=== PATIENT | female | born 1940 | race Caucasian/White ===

== ENCOUNTER 2016-09-18 08:24 | Emergency (ER) | payer MEDICARE ==
[~2016-09-18] VITALS: Ht 161.3 cm; Wt 81.8 kg
[~2016-09-18 08:24] MED LIST: ACYC400T2 PO; ALBU8.5H2 IH; ASPI-973 PO; CHOL100045 PO; CYAN500 PO; DILT120C86 PO; FLUC150T48 PO; FLUT1DIS5 IH; FLUT9.9S NS; GUAI600T86 PO; HYDR25TA4 PO; IPRA3AMP IH; MULT-1018 PO; PRAM0.252 PO; PRE20 PO; PRED-508 PO; TIOT18CA3 IH; ZIT250 PO; ZLP10T PO
[2016-09-18 08:26] VITALS: BP 130/74; PULSE 92; RESP 15; O2SAT 96
--- NOTE | 2016-09-18 08:41 | ED.REPORT ---
HPI-Dyspnea / Wheezing Date of Service Sep 18, 2016 ED Provider: Kati Bennett Patient is a 76 year old female who presents to the ED from urgent care complaining of SOB with exertion. She denies chest pain, fever, cough, abdominal pain, dysuria, nausea, vomiting, or any other symptoms. Her last nebulizer was at 0700 this morning. She was also seen at last Thursday where she was given prednisone 20 mg for 7 days without relief. Her last dose was today. She was last hospitalized for her breathing in a year ago today. Nursing Notes Stated Complaint: SOB Chief Complaint: Respiratory Complaints Nursing Notes Reviewed: Yes Allergies: Coded Allergies: No Known Allergies (Verified Allergy, Unknown, 08/24/16) Scheduled Aspirin (Aspirin) 81 Mg Tablet.dr 81 MG PO DAILY Azithromycin (Zithromax) 250 Mg Tablet 500 MG PO DAILY Cholecalciferol (Vitamin D3) (Vitamin D) 1,000 Unit Capsule 2,000 UNIT PO DAILY Cyanocobalamin (Vitamin B12) 500 Mcg Tablet Unknown Dose PO DAILY Diltiazem ER (Diltiazem ER) 120 Mg Capsule.er 120 MG PO DAILY Fluticasone Propionate (Flonase Allergy Relief) 50 Mcg/Actuation [place].susp 9.9 ML NS HS Fluticasone/Salmeterol (Advair 500-50 Diskus) 1 Each Disk.w.dev 1 PUFF IH BID Guaifenesin (Guaifenesin ER) 600 Mg Tablet 600 MG PO Q12 Hydrochlorothiazide (Hydrochlorothiazide) 25 Mg Tablet 25 MG PO DAILY Ipratropium/Albuterol Sulfate (Iprat-Albut 0.5-3(2.5) mg/3 mL Inhalant Soln) 3 Ml Ampul.neb 3 ML IH every 4 hrs Multivitamin (Multi Vitamin Daily) 1 Each Tablet 1 EACH PO DAILY Prednisone (Deltasone) 20 Mg Tablet 60 MG PO DAILY 60mg (3 tabs) daily x3 days, 40mg (2 tabs) daily x3 days, 20mg (1 tab) daily x3 days, take 10mg (1/2 tab) daily x4 days. Prednisone (PredniSONE) 20 Mg Tablet 20 MG PO TID Prednisone (PredniSONE) 10 Mg Tablet 10 MG PO DAILY Prednisone (PredniSONE) 20 Mg Tablet 20 MG PO DAILY Prednisone (PredniSONE) 50 Mg Tablet 40 MG PO DAILY Tiotropium [place] (Spiriva) 18 Mcg Cap.w.dev 18 MCG IH DAILY Scheduled PRN Acyclovir (Acyclovir) 400 Mg Tablet 400 MG PO TID PRN PRN Cold Sore Albuterol HFA (Proair HFA) 8.5 Gm Hfa.aer.ad 2 PUFFS IH Q4-6H PRN PRN For Shortness of Breath 90mcg/actuation Fluconazole (Diflucan) 150 Mg Tablet 150 MG PO ONCE PRN PRN If Taking Antibiotics once if taking antibiotics and develops yeast infection Pramipexole Dihydrochloride (Mirapex) 0.25 Mg Tablet 0.25 MG PO HS PRN PRN For Restlessness 1-2 hours before bedtime for leg cramps Zolpidem (Ambien) 10 Mg Tab 5-10 MG PO HS PRN PRN For Insomnia General Time Seen by MD: 08:40 Chief Complaint Shortness of breath Hx Obtained From: Patient Arrived By: Walk-in Sudden in Onset?: Yes Recent Healthcare: Recent doctor visit Similar Sx Previous: Yes Past Medical History Past Medical History Notes: PCP: Dr. Lance Past Medical History Uses oxygen and nebulizer Degenerative disk disease Reports: Asthma, COPD, Hypertension Past Surgical History Abdominal surgery including the removal of 3 feet of intestine Reports: Appendectomy, Hysterectomy, Tonsillectomy Family History Noncontributory Smoking History Former Smoker Social History Alcohol Use: Denies alcohol use Drug Use: Denies drug use Other Social History: Good social support, , Local resident Ambulatory Status Walker Review of Systems Constitutional: Denies: Fever Respiratory: Reports: Dyspnea on exertion, Shortness of breath, Denies: Non-productive cough Cardiovascular: Denies: Chest pain Complete sys rev & neg: except as marked. GI: Denies: Abdominal pain, Nausea, Vomiting Female: Denies: Dysuria Physical Exam Initial Vital Signs Vital Signs (First) Date Time Temp Pulse Resp B/P Pulse Ox O2 Delivery O2 Flow Rate FiO2 09/18/16 08:26 36 92 15 130/74 96 Nasal Cannula 2 Initial VS: Reviewed Head / Eyes: Atraumatic ENT: Conjunctiva normal Skin: Warm, Dry Neurologic: Alert, Oriented, Nonfocal Psychiatric: Mood/affect normal, Behavior normal, Normal thought content General/Constitutional: Awake, Alert, Well appearing, Well developed Neck: Atraumatic, Full range of motion Respiratory / Chest: Breath sounds NL, Breath sounds = bilat, No respiratory distress, No wheezing Cardiovascular: Heart rate NL, Regular rhythm Interpretation & Diagnostics Lab Results Interpretation Result Diagram: 09/18/16 0930 09/18/16 0930 Test 09/18/16 09:30 White Blood Count 8.8th/mm3 (3.8-10.1) Red Blood Count 3.95mil/mm3 (3.90-5.20) Hemoglobin 12.3g/dL (12.0-15.6) Hematocrit 36.6% (35.0-46.0) Mean Corpuscular Volume 92.7fL (81-100) Mean Corpuscular Hemoglobin 31.1pg (27.0-35.0) Mean Corpuscular Hemoglobin Concent 33.6% (32.0-37.0) Red Cell Distribution Width 13.5% (12.3-15.4) Platelet Count 138bil/L (150-400) Neutrophils (%) (Auto) 81.3% (40-74) Lymphocytes (%) (Auto) 12.5% (14-46) Monocytes (%) (Auto) 4.7% (4-12) Eosinophils (%) (Auto) 1.1% (0-5) Basophils (%) (Auto) 0.2% (0-3) Sodium Level 140mEq/L (134-144) Potassium Level 3.9mEq/L (3.5-5.2) Chloride Level 99mEq/L (97-108) Carbon Dioxide Level 27mmol/L (18-29) Blood Urea Nitrogen 17mg/dL (8-27) Creatinine 0.78mg/dL (0.57-1.00) Estimat Glomerular Filtration Rate 103mL/min (>59) Glucose Level 139mg/dL (60-99) Calcium Level 9.2mg/dL (8.5-10.1) Magnesium Level 2.0mg/dL (1.6-2.6) Total Bilirubin 0.6mg/dL (0.0-1.2) Aspartate Amino Transf (AST/SGOT) 23U/L (0-50) Alanine Aminotransferase (ALT/SGPT) 23U/L (0-32) Alkaline Phosphatase 34U/L (25-165) Troponin T < 0.010ug/L (0.0-0.011) Pro-B-Type Natriuretic Peptide 41.33pg/mL (0-738) Total Protein 6.4g/dL (6.4-8.4) Albumin 4.0g/dL (3.4-5.0) Hold Barrera Top Tube Received (Received) ECG Interpretation ECG Interpretation: Sinus rate 86 Time: 09:25 Interpreted by: ED physician X-Ray Chest Interpretation Chest Xray Interpretation: IMPRESSION: COPD, chronic interstitial prominence, but no pneumonia found. Dictated by: Armin Benjamin M.D. on 09/18/2016 at 9:38 Approved by: Armin Benjamin M.D. on 09/18/2016 at 9:38 View: AP & lat Interpretation / Wet Read by: Interpret - Radiologist Re-Eval/Medical Decision Med Decision/Clinical Course No obvious identifiable distress or shortness of breath. Patient is reassured via unremarkable workup. Seems unlikely to be pulmonary embolism. She will be discharged. Return precautions given. Re-Evaluation/Progress : Time of Eval: 10:38 )( Re-Eval Resp / Chest: No wheezing Re-Evaluation/Progress Note: Rechecked patient. Discussed plan for discharge with close follow up. Patient understands and agrees with plan. All questions addressed at this time. Counseled Regarding: Diagnosis, Lab results, Need for follow-up, When/why to return to ED Discharge & Departure Impression: Primary Impression: COPD exacerbation Disposition: Home Discharge Condition All VS Reviewed: Yes Condition: Stable Additional Instructions: During you visit to [facility] Emergency Department we obtained blood work for infectious markers, hemoglobin levels, electrolytes and Troponins to measure the chemical health of your heart. We also obtained imaging of your Lungs. All your lab values and troponins were within normal limits and your imaging showed no acute processes or abnormalities. We will send you home with - Prednisone Taper. Do not hesitate to call emergency services or your primary care physician if you experience any of the following. -High fevers. -Uncontrolled vomiting. -Syncope or loss of consciousness. -Chest pain. -Severe shortness of breath. Continue to use your inhalers home O2 and Trilogy regularly. Establish care with either a Performance Improvement Analyst or primary care physician in 1-2 weeks time following your emergency department visit for medication checks and general well-being. Referrals: Renuka Lance MD (PCP) Scribe Attestation Portions of this note were transcribed by Mini Zabala. I, Dr. Parikh personally performed the history, physical exam and medical decision-making; I reviewed and confirmed the accuracy of the information in the transcribed note. Signed by: Mini Zabala 09/18/16, 1041 Attending Statement The patient was seen and examined together with Dr. Oshea on 09/18/16 and I have added additional information to the note above. copies to: Renuka Lance MD, Timothy S DO Sep 18, 2016 08:41 MINI ZABALA Sep 18, 2016 08:52 ANN OSHEA DO Sep 18, 2016 10:36
[2016-09-18] MEDS ORDERED: predniSONE 20 mg Tablet PO ONE (08:50)
[2016-09-18 09:36] LABS: BASOPHILS % (AUTO) 0.2 % (0-3); EOSINOPHILS % (AUTO) 1.1 % (0-5); MONOCYTES % (AUTO) 4.7 % (4-12); Mean Corpuscular Hemoglobin 31.1 pg (27.0-35.0); Mean Corpuscular Volume 92.7 fL (81-100); NEUTROPHILS % (AUTO) 81.3 % (40-74); Platelet Count 138 bil/L (150-400)
--- NOTE | 2016-09-18 09:39 | DRSVH ---
PROCEDURE: X-RAY CHEST, TWO VIEWS ([id number]) INDICATIONS: SOB, copd TECHNIQUE: 2 views of the chest were acquired. COMPARISON: [facility], CR, XR CHEST 1VW (PORTABLE), 08/24/2016, 23:04. FINDINGS: Surgical changes and devices: None. Lungs and pleura: No pleural effusions or pneumothorax. Lungs are abnormal with a chronic interstit ial prominence and large lung volumes consistent with COPD. Mediastinum: Mediastinal contours are normal. Heart size is normal. Bones and chest wall: No suspicious bony abnormalities. Soft tissues appear unremarkable. IMPRESSION: COPD, chronic interstitial prominence, but no pneumonia found. Dictated by: Armin Benjamin M.D. on 09/18/2016 at 9:38 Approved by: Armin Benjamin M.D. on 09/18/2016 at 9:38
[2016-09-18 10:15] LABS: TROPONIN T < 0.010 ug/L (0.0-0.011)
[2016-09-18] MEDS ORDERED: PRED50TA PO (10:38)
[2016-09-18] MEDS ORDERED: PRE10 PO (10:38)
[2016-09-18] MEDS ORDERED: PRE20 PO (10:38)
[2016-09-18 11:04] VITALS: BP 103/82; PULSE 102; RESP 16; O2SAT 95
== END 2016-09-18 11:05 | disposition home or self-care (01) ==
LOC: SED 08:24
DX: J44.1 Chronic obstructive pulmonary disease with (acute) exacerbation (principal); I10 Essential (primary) hypertension; J45.909 Unspecified asthma, uncomplicated; Z79.82 Long term (current) use of aspirin; Z87.891 Personal history of nicotine dependence
CPT/HCPCS: 36415; 71020; 80053; 83735; 83880; 84484; 85025; 93005; 99285; G0463

== ENCOUNTER 2017-01-09 01:46 | Inpatient (IN) | payer MEDICARE ==
[~2017-01-09] VITALS: Ht 160 cm; Wt 85.7 kg
[2017-01-09] VITALS (15 sets, daily range): BP systolic 12–179; BP diastolic 45–82; PULSE 84–114; RESP 16–25; O2SAT 92–97
[~2017-01-09 01:46] MED LIST changes: +PRE10 PO; +PRED50TA PO
--- NOTE | 2017-01-09 01:53 | ED.REPORT ---
HPI-Dyspnea / Wheezing Date of Service January 09, 2017 ED Provider: Dr. Matt Corley The patient is a 76 year old female w/ a hx of COPD who presents to the ED via EMS due to SOB for the past few hrs. It has been increasing in severity over 2- 3 weeks. Associated symptoms include yellow productive-cough and thoracic pain. She confirms that this is similar to her previous COPD flare-ups. Her last COPD admission was in August of 2015, and this feels very similar. She is normally on 2.5L oxygen and she uses a trilogy machine. She denies coughing up blood, fever, diaphoresis, and chest pain. She is currently on a course of azithromycin , Thursday, Thursday, and Thursday. Nursing Notes Stated Complaint: DIFFICULTY BREATHING Chief Complaint: Respiratory Distress Nursing Notes Reviewed: Yes ([place] not reconciled) Allergies: Coded Allergies: No Known Allergies (Verified Allergy, Unknown, 08/24/16) Scheduled Aspirin (Aspirin) 81 Mg Tablet. 81 MG PO DAILY Azithromycin (Zithromax) 250 Mg Tablet 500 MG PO DAILY Cholecalciferol (Vitamin D3) (Vitamin D) 1,000 Unit Capsule 2,000 UNIT PO DAILY Cyanocobalamin (Vitamin B12) 500 Mcg Tablet Unknown Dose PO DAILY Diltiazem ER (Diltiazem ER) 120 Mg Capsule.er 120 MG PO DAILY Fluticasone Propionate (Flonase Allergy Relief) 50 Mcg/Actuation [place].susp 9.9 ML NS HS Fluticasone/Salmeterol (Advair 500-50 Diskus) 1 Each Disk.w.dev 1 PUFF IH BID Guaifenesin (Guaifenesin ER) 600 Mg Tablet 600 MG PO Q12 Hydrochlorothiazide (Hydrochlorothiazide) 25 Mg Tablet 25 MG PO DAILY Ipratropium/Albuterol Sulfate (Iprat-Albut 0.5-3(2.5) mg/3 mL Inhalant Soln) 3 Ml Ampul.neb 3 ML IH every 4 hrs Multivitamin (Multi Vitamin Daily) 1 Each Tablet 1 EACH PO DAILY Prednisone (Deltasone) 20 Mg Tablet 60 MG PO DAILY 60mg (3 tabs) daily x3 days, 40mg (2 tabs) daily x3 days, 20mg (1 tab) daily x3 days, take 10mg (1/2 tab) daily x4 days. Prednisone (PredniSONE) 20 Mg Tablet 20 MG PO TID Prednisone (PredniSONE) 10 Mg Tablet 10 MG PO DAILY Prednisone (PredniSONE) 20 Mg Tablet 20 MG PO DAILY Prednisone (PredniSONE) 50 Mg Tablet 40 MG PO DAILY Tiotropium [place] (Spiriva) 18 Mcg Cap.w.dev 18 MCG IH DAILY Scheduled PRN Acyclovir (Acyclovir) 400 Mg Tablet 400 MG PO TID PRN PRN Cold Sore Albuterol HFA (Proair HFA) 8.5 Gm Hfa.aer.ad 2 PUFFS IH Q4-6H PRN PRN For Shortness of Breath 90mcg/actuation Fluconazole (Diflucan) 150 Mg Tablet 150 MG PO ONCE PRN PRN If Taking Antibiotics once if taking antibiotics and develops yeast infection Pramipexole Dihydrochloride (Mirapex) 0.25 Mg Tablet 0.25 MG PO HS PRN PRN For Restlessness 1-2 hours before bedtime for leg cramps Zolpidem (Ambien) 10 Mg Tab 5-10 MG PO HS PRN PRN For Insomnia General Time Seen by MD: 01:52 Chief Complaint Shortness of breath Hx Obtained From: Patient Arrived By: Ambulance Sudden in Onset?: Yes Onset Occurred: 1 - 4 hours ago Symptom Duration: Since onset Recent Healthcare: No recent doctor visit, No recent hospitalization Similar Sx Previous: No Past Medical History Past Medical History Notes: PCP: Dr. Lance Past Medical History Uses oxygen and nebulizer Degenerative disk disease Reports: Asthma, COPD, Hypertension Past Surgical History Abdominal surgery including the removal of 3 feet of intestine Reports: Appendectomy, Hysterectomy, Tonsillectomy Family History Noncontributory Smoking History Former Smoker Social History Alcohol Use: Denies alcohol use Drug Use: Denies drug use Other Social History: Good social support, , Local resident Ambulatory Status Walker Review of Systems Constitutional: Denies: Fever Respiratory: Reports: Prod cough, clear, Prod cough, yellow, Shortness of breath, Denies: Prod cough, bloody Cardiovascular: Denies: Chest pain Musculoskeletal: Reports: Thoracic pain Skin: Denies Diaphoresis Complete sys rev & neg: except as marked. Physical Exam Physical Exam Notes: Initial Vital Signs Vital Signs (First) Date Time Temp Pulse Resp B/P Pulse Ox O2 Delivery O2 Flow Rate FiO2 01/09/17 01:50 36.7 94 25 179/69 94 Nasal Cannula 3 Initial VS: Reviewed, Unavailable (none on chart, ordered) Head / Eyes: Atraumatic, Normocephalic Extremities: Vascular intact, Neuro intact, No swelling, No tenderness Skin: Warm, Dry General/Constitutional: Awake, Cooperative Neck: No JVD Resp Distress / Stridor: Positive: Resp distress moderate tachypneic dyspneic decreased breath sounds few scattered wheezes mild bronchiospasm mentating w/out signs of resp failure Cardiovascular: Heart rate NL, Regular rhythm, Heart sounds NL Interpretation & Diagnostics Lab Results Interpretation Result Diagram: 01/09/17 0210 Test 01/09/17 02:10 White Blood Count 7.8th/mm3 (3.8-10.1) Red Blood Count 4.15mil/mm3 (3.90-5.20) Hemoglobin 13.0g/dL (12.0-15.6) Hematocrit 38.7% (35.0-46.0) Mean Corpuscular Volume 93.3fL (81-100) Mean Corpuscular Hemoglobin 31.3pg (27.0-35.0) Mean Corpuscular Hemoglobin Concent 33.6% (32.0-37.0) Red Cell Distribution Width 12.7% (12.3-15.4) Platelet Count 145bil/L (150-400) Neutrophils (%) (Auto) 58.9% (40-74) Lymphocytes (%) (Auto) 28.5% (14-46) Monocytes (%) (Auto) 9.7% (4-12) Eosinophils (%) (Auto) 2.7% (0-5) Basophils (%) (Auto) 0.1% (0-3) ECG Interpretation ECG Interpretation: lead V2 artifact despite multiple attempts to correct, poor quality v2 Time: 02:31 Interpreted by: ED physician Normal ECG Interpretation: Normal sinus rhythm (rate 80), No acute ischemic changes X-Ray Chest Interpretation Chest Xray Interpretation: IMPRESSION: No acute disease, chronic COPD View: Portable Interpretation / Wet Read by: Wet read ED physician Re-Eval/Medical Decision Med Decision/Clinical Course This is a 76-year-old female with fairly severe COPD on 2-1/2 L O2 at baseline who reports she has had a mild increase in her shortness of breath over the past week and feels very typical of her COPD exacerbations, but worse over the past couple hours. 3 similar severity to when she was last admitted August 2015. She denies fevers, chills, reports still having clear to yellow sputum that is unchanged, no hemoptysis, no chest pain, no leg swelling. She has no prior cardiac disease. Nebulizer, but arrives moderately short of breath. He is in visible distress initially, although it improves somewhat with an first round of nebulizers. She does not have required BiPAP support at this time, but she does use a Trilogy support at bedtime, and did not bring it in. Exam she has audible bronchospasm and decreased breath sounds with tachypnea and dyspnea. She has no overt findings of heart failure or other pathology. Chest x-ray is negative for mario infiltrate. She is however on Zithromax 3 times a week at baseline as a preventative. Given the severity of her COPD, after cultures are drawn and empiric antibiotics were administered. However chest x-ray is negative for infiltrate per my interpretation. CBC is without leukocytosis or abnormality. EKG is without evidence of ischemia. Patient has received IV's Solu-Medrol and continuous nebulizers are being administered. Patient's being admitted for further management. Source of Hx: Old records Re-Evaluation/Progress #1: Time of Eval: 02:21 Re-Evaluation/Progress Note: Pt rechecked. She is having some nausea. Plan for Zofran. Re-Evaluation/Progress #2: Time of Eval: 02:34 Re-Evaluation/Progress Note: Pt rechecked. She is still SOB and wheezing. Repeat EKG taken. Plan for admission. Consultation : Referral / Consult Name: Francesca Goyal DO Consulted With: Hospitalist Call Returned at: 02:40 Note: Case discussed. Admit pt to PCC level 2. Counseled Regarding: Diagnosis, Lab results, Need for admission Discharge & Departure Disposition: ADMITTED TO HOSPITAL Discharge Condition All VS Reviewed: Yes Condition: Stable Referrals: Renuka Lance MD (PCP) Mercedes Attestation Portion of this note were transcribed by Krissy Joseph. I, Dr.Matthew Corley, personally performed the history, physical exam, and medical decision-making: I reviewed and confirmed the accuracy for the information in the transcribed note. Signed by: mercedes Patel, 01/09/17 0300 copies to: Renuka Lance MD, Matthew F MD January 09, 2017 01:53 Krissy Joseph January 09, 2017 02:00
[2017-01-09] MEDS ORDERED: Albuterol 2.5 mg/3 mL Inhalation Solution NEB ONE ×3 (01:54→02:45)
[2017-01-09] MEDS ORDERED: Ipratropium 0.02% 0.5 mg/2.5 mL Inhalation Solution NEB ONE ×2 (01:54→02:00)
[2017-01-09] MEDS ORDERED: MethylprednisoLONE Sodium Succinate 62.5 mg/mL 2 mL Inj IVPUSH ONE (02:00)
[2017-01-09 02:25] LABS: BASOPHILS % (AUTO) 0.1 % (0-3); EOSINOPHILS % (AUTO) 2.7 % (0-5); MONOCYTES % (AUTO) 9.7 % (4-12); Mean Corpuscular Hemoglobin 31.3 pg (27.0-35.0); Mean Corpuscular Volume 93.3 fL (81-100); NEUTROPHILS % (AUTO) 58.9 % (40-74); Platelet Count 145 bil/L (150-400)
[2017-01-09] MEDS ORDERED: Ondansetron 2 mg/mL 2 mL Inj IVPUSH ONE (02:25)
[2017-01-09] MEDS ORDERED: Azithromycin Inj 500 MG in Dextrose 5% w/Vial Mate 250 ML IV ONE (02:45)
[2017-01-09] MEDS ORDERED: Alum-Mag Hydrox-Simeth 30 mL Suspension PO PRN ×2 (02:45→04:20)
[2017-01-09] MEDS ORDERED: Ondansetron 2 mg/mL 2 mL Inj IVPUSH PRN ×2 (02:45→04:20)
[2017-01-09] MEDS ORDERED: cefTRIAXone Inj 2,000 MG in Dextrose 5% Minibag Plus 50 ML IV ONE (02:45)
[2017-01-09] MEDS: 0.9% Sodium Chloride 1,000 ML IV SCH ×2 (02:52→20:29)
[2017-01-09 03:11] LABS: TROPONIN T 0.01 ug/L (0.0-0.011)
[2017-01-09 03:22] LABS: Magnesium 1.9 mg/dL (1.6-2.6)
[2017-01-09] MEDS ORDERED: Albuterol 2.5 mg/3 mL Inhalation Solution NEB PRN (04:20)
[2017-01-09] MEDS ORDERED: Polyethylene Glycol (PEG) 17 Gm Powder PO PRN (04:20)
--- NOTE | 2017-01-09 04:22 | PCM.HPMED ---
Subjective Date of Service January 09, 2017 Primary Provider: Admitting Physician: Francesca Goyal DO Primary Care Physician: Renuka Lance MD Attending Physician: Francesca Goyal DO Admit Status: From the Emergency Department Chief Complaint: shortness of breath History of Present Illness: 76yoF with past medical history of COPD and hypertension with difficulties breathing concerning for COPD exacerbation. Patient states that over the past 2-3 days it has become increasingly difficult to breath. She has been using her albuterol nebulizer 2-3 times per day and her inhaler 5-6 times and endorses night times awakening due to shortness of breath. At baseline she uses 2-3L of oxygen at all times and gets fatigued with minimal exertion (walking from room to room in her house). She denies any recent sick contacts and endorses wheezing, lightheadedness, increased sputum production, diarrhea, and nausea. She denies chest pain, chest tightness changes in urination or abdominal pain. No recent changes have been made in her medications. She is not currently taking prednisone but has been taking azithromycin three times per week as prescribed by her lead tank mechanic in [place]. Her most recent admission was from Sep 18, 2015 to Sep 24, 2015 for a COPD exacerbation. This hospitalization appears to have been uncomplicated. ECHO was completed at this time with LVEF estimated at 60-65%. On presentation T36.7, HR 94, RR 25, bp 179/69, 94% on 3L. Review of Systems: complete review of systems obtained. positive as per hpi otherwise negative Allergies Coded Allergies: No Known Allergies (Verified Allergy, Unknown, 08/24/16) Home Medications medications as per EMR. Patient can't recall medications and med rec has not been completed. Med rec will need to be reviewed in the morning. Scheduled Aspirin (Aspirin) 81 Mg Tablet. 81 MG PO DAILY Azithromycin (Zithromax) 250 Mg Tablet 500 MG PO DAILY Cholecalciferol (Vitamin D3) (Vitamin D) 1,000 Unit Capsule 2,000 UNIT PO DAILY Cyanocobalamin (Vitamin B12) 500 Mcg Tablet Unknown Dose PO DAILY Diltiazem ER (Diltiazem ER) 120 Mg Capsule.er 120 MG PO DAILY Fluticasone Propionate (Flonase Allergy Relief) 50 Mcg/Actuation [place].susp 9.9 ML NS HS Fluticasone/Salmeterol (Advair 500-50 Diskus) 1 Each Disk.w.dev 1 PUFF IH BID Guaifenesin (Guaifenesin ER) 600 Mg Tablet 600 MG PO Q12 Hydrochlorothiazide (Hydrochlorothiazide) 25 Mg Tablet 25 MG PO DAILY Ipratropium/Albuterol Sulfate (Iprat-Albut 0.5-3(2.5) mg/3 mL Inhalant Soln) 3 Ml Ampul.neb 3 ML IH every 4 hrs Multivitamin (Multi Vitamin Daily) 1 Each Tablet 1 EACH PO DAILY Prednisone (Deltasone) 20 Mg Tablet 60 MG PO DAILY 60mg (3 tabs) daily x3 days, 40mg (2 tabs) daily x3 days, 20mg (1 tab) daily x3 days, take 10mg (1/2 tab) daily x4 days. Prednisone (PredniSONE) 20 Mg Tablet 20 MG PO TID Prednisone (PredniSONE) 10 Mg Tablet 10 MG PO DAILY Prednisone (PredniSONE) 20 Mg Tablet 20 MG PO DAILY Prednisone (PredniSONE) 50 Mg Tablet 40 MG PO DAILY Tiotropium [place] (Spiriva) 18 Mcg Cap.w.dev 18 MCG IH DAILY Scheduled PRN Acyclovir (Acyclovir) 400 Mg Tablet 400 MG PO TID PRN PRN Cold Sore Albuterol HFA (Proair HFA) 8.5 Gm Hfa.aer.ad 2 PUFFS IH Q4-6H PRN PRN For Shortness of Breath 90mcg/actuation Fluconazole (Diflucan) 150 Mg Tablet 150 MG PO ONCE PRN PRN If Taking Antibiotics once if taking antibiotics and develops yeast infection Pramipexole Dihydrochloride (Mirapex) 0.25 Mg Tablet 0.25 MG PO HS PRN PRN For Restlessness 1-2 hours before bedtime for leg cramps Zolpidem (Ambien) 10 Mg Tab 5-10 MG PO HS PRN PRN For Insomnia PMH COPD Hypertension, Atrophic vaginitis, Restless leg syndrome, Obesity. Degenerative Disk Disease (s/p PANCHITO in 05/2009) Basal Cell Carcinoma Internal hemorrhoids (s/p photocoagulation in 10/2006) Surgical History Abdominal surgery in which 3 feet of intestine were removed. Hysterectomy at about age 19. MOHS procedure in 2010 ([facility]) Family History Father at 50 of COPD. Mother at 89 of old age. Social History Hx Alcohol Use: No Hx Substance Use: No Hx Tobacco Use: Yes Smoking Status: Former Smoker Exam Vital Signs Vital Sign - Last Date Time Temp Pulse Resp B/P Pulse Ox O2 Delivery O2 Flow Rate FiO2 01/09/17 04:06 114 20 158/67 94 Nasal Cannula 2.00 01/09/17 01:50 36.7 Exam General: Alert and oriented x3, Cooperative, fatigued Eyes: PERRLA, Scleral Anicteric Mouth: Mouth Normal, Mucous Membranes dry/[place] Neck: Supple, no Thyromegaly, trachea central. unable to assess JVD Chest & Lungs: diffuse wheeze, speaking in full sentences, no accessory muscle use, decreased respiratory effort Cardiovascular: Normal S1, Normal S2, No Murmurs/Rubs/Gallops, Regular Rate/ Rhythm, Murmur, Other (no peripheral edema) Pulses: Radial (present and equal), Dorsalis Pedi (present and equal) Abdomen: Soft, Non-tender, Non-distended, Normoactive bowel tones. Musculoskeletal: Unremarkable. Normal range of motion, no swollen or erythematous joints Extremities: no edema or erythematous change Skin: No rashes. Warm and dry Neurological: CN grossly intact, strength 5/5 Lymphatic: Lymph nodes Cervical and Axillary not palpable Lab and Diagnostics Result Diagram: 01/09/1720901/09/17 021 X-Rays, CTs and MRIs CXR - no acute disease Assessment & Plan 76yoF with past medical history of COPD and hypertension with difficulties breathing concerning for COPD exacerbation. COPD exacerbation, acute, POA -patient with last hospitalization for COPD exacerbation 08/2015, past records reviewed -CXR reviewed, no obvious consolidation, repeat CXR with acute clinical decline -currently taking azithromycin three time weekly, continue -albuterol q2HR PRN, albuterol-ipratropium q6HR -continue ceftriaxone / azithromycin -125mg methylpred given in ED, continue 40mg prednisone daily SIRS, acute, POA -likely secondary to COPD exacerbation -no obvious source for infection -continue ceftriaxone/azithromycin as above Thrombocytopenia, acute, POA -mild -no recent changes in medications -continue to monitor with daily labs Elevated glucose, acute POA -no history of diabetes -hgbA1c added on to labs, pending HTN, chronic -continue diltiazem and HCTZ when med rec completed Anxiety and insomnia, poa, ongoing: - lorazepam prn anxiety Restless leg syndrome, chronic -continue pramipexole when taking PO Pain Evaluation: Adequate Pain Control VTE Prophylaxis: Sub-Q Heparin (Unfractionated) Resuscitation Status: CPR: Attempt Resuscitation Francesca Goyal DO January 09, 2017 04:22
--- NOTE | 2017-01-09 07:57 | DRSVH ---
PROCEDURE: X-RAY CHEST ONE VIEW, PORTABLE ([id number]) INDICATIONS: SHORT OF BREATH TECHNIQUE: One view of the chest was acquired. COMPARISON: None. FINDINGS: Surgical changes and devices: None. Lungs and pleura: No pleural effusions or pneumothorax. Lungs are clear. Hyperinflation most consi stent with COPD. Mediastinum: Mediastinal contours appear normal. Heart size is normal. Bones and chest wall: No suspicious bony lesions. Overlying soft tissues appear unremarkable. IMPRESSION: 1. Hyperinflation most consistent with COPD. 2. No acute findings. 3. If patient has a 10-zkuv-pssj history of smoking or greater recommend low-dose lung CT screening. Dictated by: Mayank Mcfadden M.D. on 01/09/2017 at 7:54 Approved by: Mayank Mcfadden M.D. on 01/09/2017 at 7:56
[2017-01-09 08:12] LABS: BASOPHILS % (AUTO) 0.1 % (0-3); EOSINOPHILS % (AUTO) 0.1 % (0-5); MONOCYTES % (AUTO) 1.1 % (4-12); Mean Corpuscular Hemoglobin 31.1 pg (27.0-35.0); Mean Corpuscular Volume 93.7 fL (81-100); NEUTROPHILS % (AUTO) 93.2 % (40-74); Platelet Count 131 bil/L (150-400)
[2017-01-09] MEDS: Albuterol-Ipratropium 3 mL Inhalation Solution NEB SCH ×3 (08:15→20:03)
[2017-01-09] MEDS: predniSONE 20 mg Tablet PO SCH (08:18)
[2017-01-09] MEDS ORDERED: ADV250INH IH (10:49)
[2017-01-09] MEDS ORDERED: POTA10TA38 PO (10:49)
[2017-01-09] MEDS ORDERED: TIOT18CA3 IH (10:49)
[2017-01-09] MEDS ORDERED: PRAM0.5T3 PO (10:49)
[2017-01-09] MEDS ORDERED: ALBU2.5V4 INHALATION (10:53)
[2017-01-09] MEDS ORDERED: DOXY100T2 PO (10:53)
[2017-01-09] MEDS: Azithromycin Inj 500 MG in Dextrose 5% w/Vial Mate 250 ML IV SCH (14:29)
--- NOTE | 2017-01-09 15:42 | PCM.PNMED ---
Subjective Date of Service January 09, 2017 Subjective Mary Meyer is a 76 year old woman with past medical history of COPD and hypertension with difficulties breathing concerning for COPD exacerbation. Hospital day #2 Overnight: No acute events since admission. Today: The patient states she is feel well and is nearly back to her baseline breathing status. She denies any fevers, chills, chest pain, nausea, vomiting. The remainder of the review of systems is negative except as noted above. Exam Vital Signs Vital Sign - Last Date Time Temp Pulse Resp B/P Pulse Ox O2 Delivery O2 Flow Rate FiO2 01/09/17 12:00 36.7 100 18 118/70 94 Nasal Cannula 2.00 Exam General: Alert and oriented x3, Cooperative, fatigued Eyes: PERRLA, Scleral Anicteric Mouth: Mouth Normal, Mucous Membranes dry/[place] Neck: Supple, no Thyromegaly, trachea central. unable to assess JVD Chest & Lungs: no wheezing, rales or rhonchi, but reduced breath sounds throughout, speaking in full sentences, no accessory muscle use, decreased respiratory effort Cardiovascular: Normal S1, Normal S2, No Murmurs/Rubs/Gallops, Regular Rate/ Rhythm, Murmur, Other (no peripheral edema) Pulses: Radial (present and equal), Dorsalis Pedi (present and equal) Abdomen: Soft, Non-tender, Non-distended, Normoactive bowel tones. Musculoskeletal: Unremarkable. Normal range of motion, no swollen or erythematous joints Extremities: no edema or erythematous change Skin: No rashes. Warm and dry Neurological: CN grossly intact, strength 5/5 Lymphatic: Lymph nodes Cervical and Axillary not palpable IVs and Medications Medications Reviewed: Medications were reviewed in detail Lab and Diagnostics Result Diagram: 01/09/1780401/09/17804 X-Rays, CTs and MRIs X-RAY CHEST ONE VIEW, PORTABLE IMPRESSION: 1. Hyperinflation most consistent with COPD. 2. No acute findings. 3. If patient has a 32-myum-plai history of smoking or greater recommend low- dose lung CT screening. Dictated by: Mayank Mcfadden M.D. on 01/09/2017 at 7:54 Assessment & Plan Mary Meyer is a 76 year old woman with past medical history of COPD and hypertension with difficulties breathing concerning for COPD exacerbation. Hospital day #2 COPD exacerbation, acute, present on admission -patient with last hospitalization for COPD exacerbation 08/2015, past records reviewed -CXR reviewed, no obvious consolidation, repeat CXR with acute clinical decline -currently taking azithromycin three time weekly, continue -albuterol q2HR PRN, albuterol-ipratropium q6HR -continue ceftriaxone / azithromycin -125mg methylpred given in ED, continue 40mg prednisone daily x5 days SIRS, acute, present on admission -likely secondary to COPD exacerbation -no obvious source for infection -continue ceftriaxone/azithromycin as above Thrombocytopenia, chronic, present on admission -in review of the patient's records, she has had cyclic decline in her platelets that rebounded -this may represent ITP, will continue to monitor Elevated glucose, acute, present on admission -no history of diabetes -hgbA1c added on to labs, pending Hypertension, chronic, present on admission -continue diltiazem and HCTZ when med rec completed -patient's to bring in her home medication bottles as the patient is not able to recall all of them. Anxiety and insomnia, present on admission, ongoing - lorazepam PRN anxiety Restless leg syndrome, chronic -continue pramipexole when medications can be reconciled. Disposition: Anticipate patient will be in the hospital for 1-2 more days as she is evaluated and treated. Pain Evaluation: Adequate Pain Control VTE Prophylaxis: Sub-Q Heparin (Unfractionated) Resuscitation Status: CPR: Attempt Resuscitation Attending Statement Patient was seen and examined with Dr. Bustos. Chart was reviewed and agree with the above progress note. Rosey Bustos DO January 09, 2017 15:29 Floyd Kirk MD January 09, 2017 16:37
[2017-01-09] MEDS ORDERED: cefTRIAXone Inj 1,000 MG in Dextrose 5% Minibag Plus 50 ML IV SCH (20:30)
[2017-01-09 20:59] LABS: APPEARANCE,URINE CLEAR (CLEAR,HAZY); COLOR,URINE YELLOW (YELLOW); OCCULT BLOOD,URINE NEGATIVE (NEGATIVE); PH,URINE 5.5 (5.0-8.0); UROBILINOGEN,URINE NORMAL (NORMAL)
[2017-01-09] MEDS ORDERED: CRAN300T PO (21:46)
[2017-01-10] VITALS (11 sets, daily range): BP systolic 132–167; BP diastolic 66–84; PULSE 73–126; RESP 16–20; O2SAT 92–98
[2017-01-10] MEDS: Albuterol-Ipratropium 3 mL Inhalation Solution NEB SCH ×3 (01:48→19:42)
[2017-01-10 04:55] LABS: BASOPHILS % (AUTO) 0 % (0-3); EOSINOPHILS % (AUTO) 0.2 % (0-5); MONOCYTES % (AUTO) 7.3 % (4-12); Mean Corpuscular Hemoglobin 31.3 pg (27.0-35.0); Mean Corpuscular Volume 93.6 fL (81-100); NEUTROPHILS % (AUTO) 79.9 % (40-74); Platelet Count 122 bil/L (150-400)
[2017-01-10 05:38] LABS: Magnesium 1.9 mg/dL (1.6-2.6)
[2017-01-10] MEDS: 0.9% Sodium Chloride 1,000 ML IV SCH ×2 (06:22→08:38)
[2017-01-10] MEDS: Azithromycin Inj 500 MG in Dextrose 5% w/Vial Mate 250 ML IV SCH (08:42)
[2017-01-10] MEDS: predniSONE 20 mg Tablet PO SCH (08:42)
--- NOTE | 2017-01-10 16:28 | PCM.PNMED ---
Subjective Date of Service January 10, 2017 Subjective 76yoF with past medical history of COPD and hypertension presented with difficulties breathing. Patient was diagnosed with acute on chronic hypoxic respiratory failure, COPD exacerbation. ' Today patient is complaining of shortness of breath, intermittent, getting better, partially alleviated by respiratory therapy and oxygen, exacerbated by exertion. Patient is overall improving. Exam Vital Signs Vital Sign - Last Date Time Temp Pulse Resp B/P Pulse Ox O2 Delivery O2 Flow Rate FiO2 01/10/17 16:05 36.7 100 16 162/80 96 Nasal Cannula 2.00 Intake and Output 01/09/17 01/09/17 01/10/17 Cumulative From/Thru 15:00 23:00 07:00 01/09/17 01:50 - 01/10/17 05:39 Intake Total 600 ml 1018 ml 1618 ml Output Total 400 ml 400 ml Balance 200 ml 1018 ml 1218 ml Intake Oral 600 ml 100 ml 700 ml IV Total 918 ml 918 ml Output Urine Total 400 ml 400 ml Exam PHYSICAL EXAM: GENERAL: Alert, moderate distress, cooperative HEAD: atraumatic, normocephalic, no bruises. EYES: PARKER, EOMI, anicteric, able to fully open and close eyelids SKIN: Skin color normal, turgor normal/decreased. No visible rashes or lesions. EAR, NOSE, MOUTH, THROAT: Lips, oral mucosa, tongue gums, oropharynx are moist , pink, no lesions. Ears normal appearance, no lesions. NECK: no jugulovenous distention, no carotid bruits, carotid pulse normal contour, No carotid bruit, supple, no enlarged lymph nodes appreciated; ROM normal. RESPIRATORY: Decreased breath sounds bilaterally, occasional wheezing bilaterally. Good diaphragmatic excursion. Normal percussion sound. CARDIAC: normal S1 and S2; no rubs, murmurs, or gallops; regular rate and rhythm ABDOMEN: Abdomen soft, non-tender. BS normal. No masses or organomegaly. MUSCULOSKELETAL: ROM full, muscles are not tender EXTREMITIES: no pitting edema in LE, no deformities, clubbing or skin discoloration. NEURO: Alert, oriented X3, Sensation grossly intact., Cranial nerves II-XII intact, Grossly normal motor function.d PULSES: 2+ radial, 2+ posterial tibial, 2+ dorsalis pedis, 2+ carotid REVIEW OF SYSTEMS: GENERAL: + malaise, no fevers., SEE HPI HEENT: Negative for frequent or significant headaches NECK: Negative for lumps, goiter, pain and significant neck swelling All other reviewed and negative other than HPI. IVs and Medications Medications Reviewed: Medications were reviewed in detail Lab and Diagnostics Result Diagram: 01/10/1741401/10/17414 X-Rays, CTs and MRIs X-RAY CHEST ONE VIEW, PORTABLE IMPRESSION: 1. Hyperinflation most consistent with COPD. 2. No acute findings. 3. If patient has a 45-vmdt-zixb history of smoking or greater recommend low- dose lung CT screening. Dictated by: Mayank Mcfadden M.D. on 01/09/2017 at 7:54 Assessment & Plan Mary Meyer is a 76 year old woman with past medical history of COPD and hypertension with difficulties breathing concerning for COPD exacerbation. Hospital day #2 SIRS, acute, present on admission, COPD exacerbation, acute, present on admission - Improving, not under control. -patient with last hospitalization for COPD exacerbation 08/2015, past records reviewed -CXR - personally reviewed, no obvious consolidation noted Plan -currently taking azithromycin three time weekly at home - Discontinue Ceftriaxone / azithromycin as there is no sign of bacterial infection, Continue respiratory therapy, steroids Thrombocytopenia - Stable, chronic - will continue to monitor Elevated glucose, acute, present on admission -A1c normal Hypertension - Blood pressure stable -Hold blood pressure meds for now - Discontinue IV fluids Anemia of chronic disease - Stable - Monitor CBC daily Anxiety and insomnia, present on admission, ongoing - lorazepam PRN anxiety Restless leg syndrome, chronic -continue pramipexole when medications can be reconciled. Disposition: Anticipate patient will be in the hospital for 1-2 more days as she is evaluated and treated. VTE Prophylaxis: Sub-Q Heparin (Unfractionated) Resuscitation Status: CPR: Attempt Resuscitation Anish Posada MD January 10, 2017 16:28
[2017-01-11] VITALS (12 sets, daily range): BP systolic 132–190; BP diastolic 69–91; PULSE 85–119; RESP 16–28; O2SAT 92–97
[2017-01-11] MEDS: Albuterol-Ipratropium 3 mL Inhalation Solution NEB SCH ×4 (01:26→17:10)
[2017-01-11] MEDS: predniSONE 20 mg Tablet PO SCH (07:44)
[2017-01-11] MEDS: Potassium Chloride 20 mEq SR Tablet PO SCH (09:34)
[2017-01-11] MEDS ORDERED: TRAZ-115 PO (10:25)
--- NOTE | 2017-01-11 12:58 | PCM.PNMED ---
Subjective Date of Service January 11, 2017 Subjective Mary Meyer is a 76 year old woman with past medical history of COPD and hypertension with difficulties breathing concerning for COPD exacerbation. Hospital day #4 Overnight: Patient complained about insomnia overnight. Today: The patient states that her breathing was a little bit worse this morning and she began to have a productive cough with thick yellow sputum. She denies any fevers, chills, chest pain, nausea, abdominal pain. She is hopeful that she can go home tomorrow. The remainder of the review of systems is negative except as noted above. Exam Vital Signs Vital Sign - Last Date Time Temp Pulse Resp B/P Pulse Ox O2 Delivery O2 Flow Rate FiO2 01/11/17 12:17 37.0 112 18 190/72 97 Nasal Cannula 2.00 Intake and Output 01/10/17 01/10/17 01/11/17 Cumulative From/Thru 15:00 23:00 07:00 01/09/17 01:50 - 01/11/17 05:21 Intake Total 2120 ml 30 ml 3768 ml Output Total 950 ml 1350 ml Balance 1170 ml 30 ml 2418 ml Intake Oral 920 ml 1620 ml IV Total 1200 ml 30 ml 2148 ml Output Urine Total 950 ml 1350 ml Exam General: Alert and oriented x3, Cooperative, fatigued Eyes: PERRLA, Scleral Anicteric Mouth: Mouth Normal, Mucous Membranes dry/[place] Neck: Supple, no Thyromegaly, trachea central. unable to assess JVD Chest & Lungs: no wheezing, rales or rhonchi, but severely reduced breath sounds throughout, speaking in full sentences, no accessory muscle use, decreased respiratory effort Cardiovascular: Normal S1, Normal S2, No Murmurs/Rubs/Gallops, Regular Rate/ Rhythm, Murmur, Other (no peripheral edema) Pulses: Radial (present and equal), Dorsalis Pedi (present and equal) Abdomen: Soft, Non-tender, Non-distended, Normoactive bowel tones. Musculoskeletal: Unremarkable. Normal range of motion, no swollen or erythematous joints Extremities: no edema or erythematous change Skin: No rashes. Warm and dry Neurological: CN grossly intact, strength 5/5 Lymphatic: Lymph nodes Cervical and Axillary not palpable IVs and Medications Medications Reviewed: Medications were reviewed in detail Lab and Diagnostics Result Diagram: 01/10/1741401/10/17414 X-Rays, CTs and MRIs X-RAY CHEST ONE VIEW, PORTABLE IMPRESSION: 1. Hyperinflation most consistent with COPD. 2. No acute findings. 3. If patient has a 66-dsoj-hnkj history of smoking or greater recommend low- dose lung CT screening. Dictated by: Mayank Mcfadden M.D. on 01/09/2017 at 7:54 Assessment & Plan Mary Meyer is a 76 year old woman with past medical history of COPD and hypertension with difficulties breathing concerning for COPD exacerbation. Hospital day #4 SIRS, acute, present on admission. Acute hypoxic resp failure. COPD exacerbation , acute, present on admission - improving, not under control -patient with last hospitalization for COPD exacerbation 08/2015, past records reviewed -CXR reviewed, no obvious consolidation, repeat CXR with acute clinical decline -currently taking azithromycin three time weekly, continue -albuterol q2HR PRN, albuterol-ipratropium q6HR - ceftriaxone / azithromycin stopped. Procalcitonin negative. Likely WBC elevation is secondary to steroid use. -continue with prednisone Thrombocytopenia, chronic, present on admission -in review of the patient's records, she has had cyclic decline in her platelets that rebounded -this may represent ITP, will continue to monitor Elevated glucose, acute, present on admission -A1c normal Chronic issues, present on admission: Hypertension - Restarted home blood pressure medications including HCTZ, Diltiazem Anemia of chronic disease - Stable - Monitor CBC daily Anxiety and insomnia, present on admission, ongoing - lorazepam PRN anxiety Restless leg syndrome, chronic -continue pramipexole Disposition: Anticipate patient will be in the hospital for 1 more day as she is evaluated and treated. VTE Prophylaxis: Sub-Q Heparin (Unfractionated) Resuscitation Status: CPR: Attempt Resuscitation Time spent 35 min Attending Statement Patient was seen and examined by me today. I confirmed pertinent physical exam findings and agree with physical exam as documented. I agree with overall assessment and plan of care as documented. Labs, radiology tests reviewed. Plan of care, medication side effects, home medication, diagnostic procedures and available alternatives were discussed and reviewed with the patient. All questions answered. Patient verbalized understanding, approved and agreed to plan of care. Rosey Bustos DO January 11, 2017 12:46 Anish Posada MD January 11, 2017 18:58
--- NOTE | 2017-01-11 14:35 | DRSVH ---
PROCEDURE: X-RAY CHEST ONE VIEW ([id number]) INDICATIONS: ?PNA TECHNIQUE: One view of the chest was acquired. COMPARISON: [facility], CR, XR CHEST 2VW, 09/18/2016, 9:09. [facility], CR, XR CHEST 1VW (PORTABLE), 01/09/2017, 1:57. FINDINGS: Surgical changes and devices: None. Lungs and pleura: No pleural effusions or pneumothorax. There is hyperinflation of the lungs with f lattening of the hemidiaphragms compatible with COPD. There are slightly increased streaky left infr ahilar opacities. Mediastinum: Mediastinal contours appear normal. Heart size is normal. Bones and chest wall: No suspicious bony lesions. Overlying soft tissues appear unremarkable. IMPRESSION: 1. Slight increased left infrahilar opacities may reflect developing consolidation, versus atelectas is. 2. Findings compatible with COPD redemonstrated. Dictated by: Mesfin Morales M.D. on 01/11/2017 at 14:27 Approved by: Mesfin Morales M.D. on 01/11/2017 at 14:28
[2017-01-12] VITALS (8 sets, daily range): BP systolic 141–154; BP diastolic 68–81; PULSE 80–101; RESP 18–20; O2SAT 93–95
[2017-01-12] MEDS: Albuterol-Ipratropium 3 mL Inhalation Solution NEB SCH ×3 (00:24→11:12)
[2017-01-12] MEDS ORDERED: predniSONE 20 mg Tablet PO SCH (08:30)
[2017-01-12] MEDS: Potassium Chloride 20 mEq SR Tablet PO SCH (09:10)
--- NOTE | 2017-01-12 14:28 | PCM.DC.MED ---
Discharge Summary Date of Service January 12, 2017 Dates of Hospitalization Date of Hospital Admission January 09, 2017 at 02:50 Date of Discharge: January 12, 2017 Providers: Admitting Physician: Francesca Goyal DO Primary Care Physician: Renuka Lance MD Attending Physician: Francesca Goyal DO Diagnosis at Time of Discharge Diagnosis at Time of Discharge Acute on chronic respiratory failure, COPD exacerbation Thrombocytopenia, hypertension, anemia of chronic disease, anxiety and insomnia , restless legs syndrome Procedures XRay, CTs & MRIs X-RAY CHEST ONE VIEW, PORTABLE IMPRESSION: 1. Hyperinflation most consistent with COPD. 2. No acute findings. 3. If patient has a 32-buzc-hirf history of smoking or greater recommend low- dose lung CT screening. Dictated by: Mayank Mcfadden M.D. on 01/09/2017 at 7:54 Hospital Course Patient is a 76-year-old female with past medical history of COPD, hypertension , anxiety, insomnia, restless leg syndrome. Patient was admitted for evaluation and management of worsening shortness of breath. She was diagnosed with acute on chronic hypoxic respiratory failure, secondary to COPD exacerbation. Patient was treated with respiratory therapy, oxygen, she was initially started on IV ceftriaxone and azithromycin. Antibiotics were discontinued later. After patient improved she was discharged home with recommendation to follow up with her primary care doctor, quill fixer for further management of her medical problems. Patient Condition @ Discharge: good Discharge Disposition: home Discharge Activity: resume regular activity, patient was advised to avoid heavy physical work or exertion Discharge Diet: regular diet, heart healthy, low fat, low salt, high fiber Information Provided to Patient: information about discharge medications. Discharge Medications: I discussed with patient medication dosage, usage, goals of therapy, side effects, alternatives. TIME SPENT IN DISCHARGE ACTIVITY: Face to face activity greater then 30 minutes spent in discharge activity. 1. Discussed with patient re: discharge plan of care/treatment, and follow up care/services. 2. Patient agreed with discharge plan and further plan of care, all questions were answered/addressed, no further questions at the time of discharge. Exam Vital Signs (Last) Date Time Temp Pulse Resp B/P Pulse Ox O2 Delivery O2 Flow Rate FiO2 01/12/17 13:59 36.7 101 18 148/73 94 Nasal Cannula 2.00 Test 01/09/17 02:10 5/12/17 19:48 01/09/17 20:06 01/10/17 04:15 Hemoglobin A1c 5.8% (4.8-5.6) Lactic Acid Level 1.2mmol/L (0.4-2.0) Troponin T 0.010ug/L (0.0-0.011) Pro-B-Type Natriuretic Peptide 62.47pg/mL (0-738) Hold Urine Received (Received) Urine Color Yellow (YELLOW) Urine Appearance Clear (CLEAR,HAZY) Urine pH 5.5 (5.0-8.0) Urine Specific [place] 1.023 (1.003-1.035) Urine Protein Negativemg/dL (NEG,TRACE) Urine Glucose (UA) 500mg/dL (NEGATIVE) Urine Ketones Negativemg/dL (NEGATIVE) Urine Occult Blood Negative (NEGATIVE) Urine Nitrite Negative (NEGATIVE) Urine Bilirubin Negative (NEGATIVE) Urine Urobilinogen Normalmg/dL (NORMAL) Urine Leukocyte Esterase Negative (NEGATIVE) Urine RBC 0-2/hpf (0-2) Urine WBC 0-5/hpf (0-5) Urine Epithelial Cells Occasional/hpf (NONE-MOD) Urine Crystals None seen (NONE SEEN) Urine Bacteria None/hpf (NONE-FEW) Urine Hyaline Casts None/lpf (NONE) Urine Granular Casts None seen (NONE SEEN) Urine Waxy Casts None seen (NONE SEEN) Urine Red Blood Cell Casts None seen (NONE SEEN) Urine White Blood Cell Casts None seen (NONE SEEN) Urine Mucus None seen (None Seen) Urine Trichomonas None seen (NONE SEEN) Urine Yeast None (NONE SEEN) Urine Culture Reflexed Not indicated White Blood Count 11.9th/mm3 (3.8-10.1) Red Blood Count 3.74mil/mm3 (3.90-5.20) Hemoglobin 11.7g/dL (12.0-15.6) Hematocrit 35.0% (35.0-46.0) Mean Corpuscular Volume 93.6fL (81-100) Mean Corpuscular Hemoglobin 31.3pg (27.0-35.0) Mean Corpuscular Hemoglobin Concent 33.4% (32.0-37.0) Red Cell Distribution Width 12.8% (12.3-15.4) Platelet Count 122bil/L (150-400) Neutrophils (%) (Auto) 79.9% (40-74) Lymphocytes (%) (Auto) 12.4% (14-46) Monocytes (%) (Auto) 7.3% (4-12) Eosinophils (%) (Auto) 0.2% (0-5) Basophils (%) (Auto) 0% (0-3) Sodium Level 137mEq/L (134-144) Potassium Level 3.6mEq/L (3.5-5.2) Chloride Level 93mEq/L (97-108) Carbon Dioxide Level 29mmol/L (18-29) Blood Urea Nitrogen 16mg/dL (8-27) Creatinine 0.78mg/dL (0.57-1.00) Estimat Glomerular Filtration Rate 103mL/min (>59) Glucose Level 117mg/dL (60-99) Calcium Level 9.0mg/dL (8.5-10.1) Magnesium Level 1.9mg/dL (1.6-2.6) Total Bilirubin 0.3mg/dL (0.0-1.2) Aspartate Amino Transf (AST/SGOT) 27U/L (0-50) Alanine Aminotransferase (ALT/SGPT) 26U/L (0-32) Alkaline Phosphatase 26U/L (25-165) Total Protein 5.7g/dL (6.4-8.4) Albumin 3.8g/dL (3.4-5.0) Test 01/11/17 09:53 Procalcitonin 0.06ng/mL (0.00-0.08) Discharge Medications Discharge Medications Aspirin (Aspirin) 81 Mg Tablet.dr 81 MG PO DAILY (Reported) Azithromycin (Zithromax) 250 Mg Tablet 500 MG PO DAILY Prescribed by: YA QUICK MD Cholecalciferol (Vitamin D3) (Vitamin D) 1,000 Unit Capsule 2,000 UNIT PO DAILY (Reported) Cranberry Extract (Cranberry) 300 Mg Tablet 300 MG PO DAILY (Reported) Cyanocobalamin (Vitamin B12) 500 Mcg Tablet Unknown Dose PO DAILY (Reported) Diltiazem (Cardizem) 30 Mg Tablet 30 MG PO ACHS Prescribed by: SHAKA GROVE DO Fluticasone Propionate (Flonase Allergy Relief) 50 Mcg/Actuation [place].susp 9.9 ML NS HS (Reported) Fluticasone/Salmeterol (Advair 250-50 Diskus) 60 Puff/Inh Disk 1 PUFF IH BID ( Reported) Hydrochlorothiazide (Hydrochlorothiazide) 25 Mg Tablet 25 MG PO DAILY (Reported ) Multivitamin (Multi Vitamin Daily) 1 Each Tablet 1 EACH PO DAILY (Reported) Potassium Chloride (Potassium Chloride) 10 Meq Tab.er.prt 20 MEQ PO DAILY ( Reported) TAKE WITH FOOD Pramipexole Dihydrochloride (Mirapex) 0.5 Mg Tablet 0.25 MG PO HS (Reported) Prednisone (Deltasone) 20 Mg Tablet 30 MG PO DAILY Prescribed by: SHAKA GROVE DO Tiotropium [place] (Spiriva) 18 Mcg Cap.w.dev 18 MCG IH DAILY (Reported) As needed Albuterol Neb Soln (Albuterol Neb Soln) 2.5 Mg/3 Ml Vial.neb 2.5 MG INHALATION TID PRN PRN For Shortness of Breath (Reported) Trazodone (Trazodone) 50 Mg Tablet 75-100 MG PO HS PRN PRN Insomnia (Reported) Anish Posada MD January 12, 2017 14:28
--- NOTE | 2017-01-12 14:54 | PCM.DIMED ---
Rosey Bustos DO 01/12/17 1454: Discharge Instructions Date of Service January 12, 2017 Dates of Hospitalization January 09, 2017 at 02:50 Discharge Diagnosis Discharge Diagnosis SIRS, acute, present on admission. Acute hypoxic resp failure. COPD exacerbation , acute, present on admission Thrombocytopenia, chronic, present on admission Elevated glucose, acute, present on admission Hypertension Anemia of chronic disease Anxiety and insomnia, present on admission, ongoing Restless leg syndrome, chronic Medication Instructions You will need to conclude your course of Prednisone. Diet Heart Healthy Activity Limited until seen by PCP Patient Instructions Please follow up with your PCP in one week. Follow-up Provider: Renuka Lance MD Follow-up with PCP in: 1 week Anish Posada MD 01/12/17 1525: Rosey Bustos DO January 12, 2017 14:54 Anish Posada MD January 12, 2017 15:25
[2017-01-12] MEDS ORDERED: PRED-508 PO (14:59)
[2017-01-12] MEDS ORDERED: DILT30TA30 PO (14:59)
== END 2017-01-12 15:44 | disposition home or self-care (01) | DRG 190 ==
LOC: SED 01:46 → PCC 02:50 → MPC 01-12 07:14
PROVIDERS: ADMIT Internal Medicine; ATTEND Internal Medicine
DX: J44.1 Chronic obstructive pulmonary disease with (acute) exacerbation (principal); J96.21 Acute and chronic respiratory failure with hypoxia; R65.10 Systemic inflammatory response syndrome (SIRS) of non-infectious origin without acute organ dysfunction; I10 Essential (primary) hypertension; Z79.82 Long term (current) use of aspirin; Z79.52 Long term (current) use of systemic steroids; Z87.891 Personal history of nicotine dependence; D69.6 Thrombocytopenia, unspecified; F41.9 Anxiety disorder, unspecified; G25.81 Restless legs syndrome; D64.9 Anemia, unspecified; G47.00 Insomnia, unspecified

== ENCOUNTER 2017-05-11 15:37 | Emergency (ER) | payer MEDICARE ==
[~2017-05-11] VITALS: Ht 160 cm; Wt 79.5 kg
[~2017-05-11 15:37] MED LIST changes: -ACYC400T2 PO; +ADV250INH IH; +ALBU2.5V4 INHALATION; -ALBU8.5H2 IH; +CRAN300T PO; -DILT120C86 PO; +DILT30TA30 PO; -FLUC150T48 PO; -FLUT1DIS5 IH; -GUAI600T86 PO; -IPRA3AMP IH; +POTA10TA38 PO; -PRAM0.252 PO; +PRAM0.5T3 PO; -PRE10 PO; -PRE20 PO; -PRED50TA PO; +TRAZ-115 PO; -ZLP10T PO
[2017-05-11 16:00] VITALS: BP 154/71; PULSE 79; RESP 23; O2SAT 98
--- NOTE | 2017-05-11 18:14 | ED.REPORT ---
HPI-Dyspnea / Wheezing Date of Service May 11, 2017 ED Provider: Matt Corley MD History of Present Illness: OCC A 77 year old female with a history of COPD on 3L of home O2, asthma treated with a nebulizer and hypertension presents to the ED with dyspnea that began one week ago. Her current symptoms feel significantly worse than her baseline but feel similar to her previous episodes of COPD exacerbation. Last nebulizer treatment was yesterday. Last admission for COPD exacerbation was 12/2016. Patient denies any chest pain, unilateral leg swelling/pain, fever, chills, nausea, vomiting, changes in sputum production or cough. No recent antibiotic or prednisone use. Nursing Notes Stated Complaint: SHORTNESS OF BREATH, HX OF COPD Chief Complaint: Respiratory Complaints Nursing Notes Reviewed: Yes ([employer], [employer] reconciled) Allergies: Coded Allergies: No Known Allergies (Verified Allergy, Unknown, 05/11/17) Scheduled Aspirin (Aspirin) 81 Mg Tablet.dr 81 MG PO DAILY Azithromycin (Zithromax) 250 Mg Tablet 500 MG PO DAILY Azithromycin (Zithromax (Z-Gilbert)) 250 Mg Tablet 250 MG PO DAILY Take two tablets by mouth on day 1, then take one tablet daily on days 2 through 5. Cholecalciferol (Vitamin D3) (Vitamin D) 1,000 Unit Capsule 2,000 UNIT PO DAILY Cranberry Extract (Cranberry) 300 Mg Tablet 300 MG PO DAILY Cyanocobalamin (Vitamin B12) 500 Mcg Tablet Unknown Dose PO DAILY Diltiazem (Cardizem) 30 Mg Tablet 30 MG PO ACHS Fluticasone Propionate (Flonase Allergy Relief) 50 Mcg/Actuation [place].susp 9.9 ML NS HS Fluticasone/Salmeterol (Advair 250-50 Diskus) 60 Puff/Inh Disk 1 PUFF IH BID Hydrochlorothiazide (Hydrochlorothiazide) 25 Mg Tablet 25 MG PO DAILY Multivitamin (Multi Vitamin Daily) 1 Each Tablet 1 EACH PO DAILY Potassium Chloride (Potassium Chloride) 10 Meq Tab.er.prt 20 MEQ PO DAILY TAKE WITH FOOD Pramipexole Dihydrochloride (Mirapex) 0.5 Mg Tablet 0.25 MG PO HS Prednisone (Deltasone) 20 Mg Tablet 30 MG PO DAILY Prednisone (PredniSONE) 20 Mg Tablet 60 MG PO DAILY Tiotropium [place] (Spiriva) 18 Mcg Cap.w.dev 18 MCG IH DAILY Scheduled PRN Albuterol Neb Soln (Albuterol Neb Soln) 2.5 Mg/3 Ml Vial.neb 2.5 MG INHALATION TID PRN PRN For Shortness of Breath Trazodone (Trazodone) 50 Mg Tablet 75-100 MG PO HS PRN PRN Insomnia General Time Seen by MD: 18:13 Chief Complaint Shortness of breath Hx Obtained From: Patient Arrived By: Walk-in Sudden in Onset?: No Onset Occurred: 1 week ago Symptom Duration: Since onset Location: : None Associated with: Denies: Chest pain, Cough, Fever, Leg pain, Leg swelling, Nausea, Vomiting Pertinent Negative: Pt denies other symptoms Recent Healthcare: No recent doctor visit Past Medical History Past Medical History Notes: PCP: Dr. Lance Past Medical History COPD Asthma Hypertension Uses oxygen and nebulizer Degenerative disk disease Past Surgical History Abdominal surgery including the removal of 3 feet of intestine Reports: Appendectomy, Hysterectomy, Tonsillectomy Family History Noncontributory Smoking History Former Smoker Social History Alcohol Use: Denies alcohol use Drug Use: Denies drug use Other Social History: Good social support, , Local resident Ambulatory Status Walker Review of Systems Constitutional: Denies: Chills, Fever Respiratory: Reports: Shortness of breath, Denies: Non-productive cough, Prod cough, white Cardiovascular: Denies: Chest pain, Edema Complete sys rev & neg: except as marked. GI: Denies: Nausea, Vomiting Physical Exam Initial Vital Signs Vital Signs (First) Date Time Temp Pulse Resp B/P Pulse Ox O2 Delivery O2 Flow Rate FiO2 05/11/17 16:00 36.3 79 23 154/71 98 Nasal Cannula 3 Initial VS: Reviewed, Vital signs abnormal Head / Eyes: Atraumatic, Normocephalic, PERRL Extremities: Vascular intact, Neuro intact, No swelling, No tenderness Skin: Warm, Dry, No cyanosis Neurologic: Alert, Oriented, Nonfocal Psychiatric: Mood/affect normal, Behavior normal, Normal thought content General/Constitutional: Awake, Alert, No acute distress, Well appearing, Well developed GENERAL: Pleasant Neck: Atraumatic, Supple, Full range of motion Respiratory / Chest: Atraumatic, Breath sounds = bilat, No respiratory distress Diminished Breath Sounds: Positive: Decreased bilateral Cardiovascular: Heart rate NL, Regular rhythm, Heart sounds NL, Peripheral circulation NL, Pulses = bilaterally Lower Extremity / Pelvis / MS: Atraumatic, Inspection NL, No swelling, Non- tender, Neurologic intact, Vascular intact, No edema Upper Extremity / MS: Atraumatic, Inspection NL, Neurologic intact, Vascular intact, No edema Interpretation & Diagnostics ECG Interpretation ECG Interpretation: Normal Sinus Rhythm Rate 74 bpm No acute abnormalities Time: 19:13 Interpreted by: ED physician X-Ray Chest Interpretation Chest Xray Interpretation: IMPRESSION: Increased vascularity with blunting of the costophrenic angles, suggestive of edema with trace effusions. Dictated by: Akiko Rodriguez M.D. on 05/11/2017 at 19:27 Interpretation / Wet Read by: Interpret - Radiologist Re-Eval/Medical Decision Med Decision/Clinical Course This is a pleasant 77-year-old female with COPD presents complaining of some mild shortness of breath and slowly worsening and feels exactly like a COPD exacerbation to her before. She reports no chest pain, no definite fevers, no hemoptysis, no leg swelling, no history of heart failure, no new medications. I am she appears in no visible distress. She has decreased breath sounds and a few scattered wheezes that are mild. She has no increased work of breathing currently evident. The rest of exam is normal. The chest x-ray revealed no definite infiltrate, an EKG is normal. I do not find any indication for laboratory and treatment. The patient seemed albuterol and Atrovent, starting dose of steroids, Azithromycin was initiated given her age and chornic O2 requirements, she feels much improved and wishes to go home. I think this is entirely reasonable and she is being discharged on a five-day course of prednisone, and a course of azithromycin. Routine and return precautions reviewed. Source of Hx: Old records Re-Evaluation/Progress : Time of Eval: 20:05 Patient Status: Condition improved Re-Evaluation/Progress Note: Patient condition is re-evaluated. She is informed of her current and pending results. All questions about the intended treatment plan are addressed. Patient understands and agrees with the plan. Differential Diagnosis: Positive: COPD exacerbation, Negative: Acute coronary syndrome, Airway obstruction, Cardiogenic shock, Foreign body airway, Hypertensive emergency, PSVT, Pneumonia, Pneumothorax, Respiratory failure Counseled Regarding: Diagnosis, Need for follow-up, When/why to return to ED Discharge & Departure Impression: Primary Impression: Acute exacerbation of chronic obstructive pulmonary disease (COPD) Disposition: Home Discharge Condition All VS Reviewed: Yes Condition: Improved Patient Instructions: COPD (Chronic Obstructive Pulmonary Disease) (ED) Additional Instructions: 1. Take the antibiotic azithromycin 250mg once a day for four more days - next dose tomorrow. 2. Take prednisone 60mg once a day for 5 more days. 3. Continue your nebulizers - you can use the albuterol rescue nebulizer up to every 4 hours 4. Take it easy 5. Return again if new or worsening symptoms Referrals: Renuka Lance MD (PCP) Scribe Attestation Portions of this note were transcribed by Lesli Rodriguez. I, Dr. Corley, personally performed the history, physical exam and medical decision-making; I reviewed and confirmed the accuracy of the information in the transcribed note. Signed by: Lesli Rodriguez, 05/11/17. copies to: Renuka Lance MD, Matthew F MD May 11, 2017 18:14 LESLI RODRIGUEZ May 11, 2017 18:33
[2017-05-11 18:15] VITALS: BP 167/76; PULSE 79; RESP 24; O2SAT 98
[2017-05-11] MEDS ORDERED: Ipratropium 0.02% 0.5 mg/2.5 mL Inhalation Solution NEB ONE (18:30)
[2017-05-11] MEDS ORDERED: Albuterol 2.5 mg/3 mL Inhalation Solution NEB ONE (18:30)
[2017-05-11] MEDS ORDERED: predniSONE 20 mg Tablet PO ONE (18:30)
[2017-05-11 18:56] VITALS: PULSE 78; RESP 14; O2SAT 97
--- NOTE | 2017-05-11 19:29 | DRSVH ---
PROCEDURE: X-RAY CHEST ONE VIEW, PORTABLE ([id number]) INDICATIONS: SHORNESS OF BREATH TECHNIQUE: One view of the chest was acquired. COMPARISON: [facility], CR, XR CHEST 1VW, 01/11/2017, 12:55. FINDINGS: Surgical changes and devices: None. Lungs and pleura: Costophrenic angles are blunted bilaterally. There is appearance of mild increased pulmonary vascularity. Mediastinum: Mediastinal contours appear normal. Heart size is normal. Bones and chest wall: No suspicious bony lesions. Overlying soft tissues appear unremarkable. IMPRESSION: Increased vascularity with blunting of the costophrenic angles, suggestive of edema with trace effusions. Dictated by: Akiko Rodriguez M.D. on 05/11/2017 at 19:27 Approved by: Akiko Rodriguez M.D. on 05/11/2017 at 19:28
[2017-05-11] MEDS ORDERED: AZIT250T4 PO (20:08)
[2017-05-11] MEDS ORDERED: PRE20 PO (20:08)
[2017-05-11 20:29] VITALS: BP 154/61; PULSE 88; RESP 28; O2SAT 94
== END 2017-05-11 20:29 | disposition home or self-care (01) ==
LOC: SED 15:37
DX: J44.1 Chronic obstructive pulmonary disease with (acute) exacerbation (principal); I10 Essential (primary) hypertension; Z87.891 Personal history of nicotine dependence; Z90.710 Acquired absence of both cervix and uterus; Z79.82 Long term (current) use of aspirin
CPT/HCPCS: 71010; 93005; 94644; 94770; 99284; G0463; J7613